=== PATIENT | male | born 1960 | race Caucasian/White ===

== ENCOUNTER 2020-06-15 22:34 | Emergency (ER) | payer SELFPAY ==
[~2020-06-15] VITALS: Ht 170.2 cm; Wt 75.0 kg
--- NOTE | 2020-06-15 23:30 | NUR ---
PT STATES HEAD WEAKNESS IN LEGS LAST 2 WEEKS AND NECK PAIN, NUMBNESS WITH A " FEELING OF ELECTICAL SHOCK FEELING THROUGH SHOULDERS AND NECK." PT ALSO STATES LEFT GROIN PAIN.
--- NOTE | 2020-06-15 23:40 | NUR ---
PT STATES THAT GOT A WALKER ABOUT A WEEK AGO AFTER CATCHING HIMSELF ALMOST FALLING AND HAVING THE WALL SUPPORT HIM.
--- NOTE | 2020-06-16 00:30 | NUR ---
Pt off to MRI.
[2020-06-16 00:37] LABS: BASOPHILS % (AUTO) 0 % (0-1); EOSINOPHILS % (AUTO) 0 % (1-7); LYMPHOCYTES % (AUTO) 4 % (22-44); MD NO; MEAN CORPUSCULAR HGB CONC 32.8 g/dL (33.2-36.2); MEAN PLATELET VOLUME 6.9 fL (7.4-10.4); MONOCYTES % (AUTO) 7 % (2-9); NEUTROPHILS % (AUTO) 89 % (42-75); PLATELET COUNT 295 x10^3/uL (130-400); RED BLOOD COUNT 5.06 x10^6/uL (4.38-5.82); RED CELL DISTRIBUTION WIDTH 15.1 % (9.4-14.8)
[2020-06-16 00:44] LABS: ALBUMIN 3.2 g/dL (3.4-5.0); ANION GAP 4 mmol/L (5-15); CALCIUM 8.4 mg/dL (8.5-10.1); CHLORIDE 104 mmol/L (98-107); CREATININE 0.77 mg/dL (0.7-1.3)
--- NOTE | 2020-06-16 00:54 | NUR ---
PT IN [facility] INFORMATION [facility] STATES PT SAID HE COULD WALK TO TABLE WITH WALKER PT LEGS WERE WEAK WHILE USING THE WALKER TECH GUIDED PT TO FLOOR CAREFULLY. PT DID NOT HIT HEAD. TECH CALLED THIS RN TO HELP PT TO MRI TABLE. PT STATED WAS OK AND NO PAIN "THAT HIS LEGS GOT STIFF"
--- NOTE | 2020-06-16 01:27 | NUR ---
RELIEF RN: PT BACK FROM MRI. ASSISTED TO EDGE OF BED, USING URINAL. CALL LIGHT INREACH. WILL CTM.
--- NOTE | 2020-06-16 03:18 | NUR ---
PT UP TO AMBULATE TO RESTROOM. PT STATED HE NEEDS A WALKER. WAS ABLE TO HOLD HIS HAND, AND SLOWLY, WITH PAUSES TO GET HIM TO THE RESTROOM, WAS UNSTEADY STANDING ON HIS OWN WHILE IN THE RESTROOM. HAD TO KEEP AN EYE ON PT FROM THE DOOR TO MAKE SURE PT DID NOT TIP BACK APPEARED UNSTEADY.
--- NOTE | 2020-06-16 03:25 | NUR ---
PT TO CT.
[2020-06-16 06:30] VITALS: BP 130/80
--- NOTE | 2020-06-16 06:33 | NUR ---
Patient given discharge instructions and they have confirmed that they understand the instructions. Patient wheelchaired to discharge and no questions at this time.
== END 2020-06-16 06:58 | disposition home or self-care (01) ==
LOC: ED 06-16 06:15
DX: M48.02 Spinal stenosis, cervical region (principal); M54.5 Low back pain; R53.1 Weakness; I10 Essential (primary) hypertension; R51.9 Headache, unspecified; F17.200 Nicotine dependence, unspecified, uncomplicated
CPT/HCPCS: 36415; 70450; 72141; 72148; 80048; 82040; 85025; 99285